=== PATIENT | female | born 2000 | race Caucasian/White ===

== ENCOUNTER 2021-09-04 00:43 | Emergency (ER) | payer OTHER ==
[~2021-09-04] VITALS: Ht 172.7 cm; Wt 95.3 kg
[2021-09-04 00:50] VITALS: BP_SYST 143
--- NOTE | 2021-09-04 01:00 | NUR ---
Placed in room 1 . Placed on environmental monitoring technician, blood pressure machine and pulse oximeter. To gown for exam. Side rails up. Report given to Justino MATOS.
--- NOTE | 2021-09-04 01:19 | NUR ---
Dr. Serrano present in room.
--- NOTE | 2021-09-04 01:40 | NUR ---
Pt refuses iv and iv medication. ER provider aware.
[2021-09-04] MEDS ORDERED: DIPHENHYDRAMINE INJ 50 MG/ML VIAL IVP ONE (01:45)
[2021-09-04 01:57] LABS: BASOPHILS % (AUTO) 0.6 % (0.0-2.0); EOSINOPHILS # (AUTO) 0.2 K/uL (0.0-0.4); EOSINOPHILS % (AUTO) 1.9 % (0.0-4.0); HEMATOCRIT 39.8 % (36-48); HEMOGLOBIN 13.7 g/dL (12.0-16.0); LYMPHOCYTES # (AUTO) 2.2 K/uL (1.0-5.5); LYMPHOCYTES % (AUTO) 26.2 % (20.5-51.5); MEAN CORPUSCULAR HEMOGLOBIN 29 pg (27-31); MEAN CORPUSCULAR HGB CONC 34 % (32-36); MEAN CORPUSCULAR VOLUME 84 fL (79.0-98.0); MONOCYTES # (AUTO) 0.6 K/uL (0.0-1.0); MONOCYTES % (AUTO) 7.1 % (1.7-9.3); NEUTROPHILS # (AUTO) 5.3 K/uL (1.8-7.7); NEUTROPHILS % (AUTO) 64.2 % (40.0-70.0); PLATELET COUNT (AUTO) 232 K/uL (130-430); RED BLOOD CELL COUNT(AUTO) 4.74 MIL/uL (4.2-6.2); RED CELL DISTRIBUTION WIDTH 12.8 % (9.0-15.0); WHITE BLOOD COUNT (AUTO) 8.3 K/uL (4.8-10.8)
[2021-09-04 02:11] LABS: ANION GAP 10 (5-15); CALCIUM 9.7 mg/dL (8.4-11.0); CHLORIDE 106 mmol/L (98-107); CREATININE 0.74 mg/dL (0.55-1.30); GLUCOSE 112 mg/dL (70-99); POTASSIUM 4.1 mmol/L (3.5-5.1); SODIUM SERUM 140 mmol/L (136-145); UREA NITROGEN, BLOOD 17 mg/dL (8-21)
[2021-09-04 02:20] LABS: ALANINE AMINOTRANSFERASE 18 U/L (12-78); ALBUMIN 3.8 g/dL (3.4-4.8); ASPARTATE AMINOTRANSFERASE 21 U/L (10-37); TOTAL BILIRUBIN 0.1 mg/dL (0.0-1.0)
[2021-09-04 02:21] LABS: GFR AFRICAN AMERICAN 126 mL/min (>90)
[2021-09-04 03:15] VITALS: BP_SYST 129
--- NOTE | 2021-09-04 03:19 | NUR ---
Patient given written and verbal discharge instructions and verbalizes understanding. ER MD discussed with patient the results and treatment provided. Patient in stable condition. ID arm band removed. Patient educated on pain management and to follow up with PMD.Opportunity for questions provided and answered.
[2021-09-04] MEDS ORDERED: BACITRACIN 1 GM OINT TP ONE (14:12)
== END 2021-09-04 03:19 | disposition home or self-care (01) ==
LOC: SED 00:43
DX: R07.89 Other chest pain (principal); R06.00 Dyspnea, unspecified; F41.9 Anxiety disorder, unspecified
CPT/HCPCS: 36415; 71045; 80053; 81025; 83880; 84484; 85025; 85379; 93005; 99285